=== PATIENT | male | born 1985 | race Caucasian/White ===

== ENCOUNTER 2017-02-09 19:49 | Inpatient (IN) | payer SELFPAY, OTHER ==
[~2017-02-09 19:49] MED LIST: ISOVUE-370 76%-LOCM 1 ML ONE
[2017-02-09 20:04] LABS: #Eosinphils 0.1 thou/uL (0.0-0.7); #Lymphocytes 1.3 thou/uL (1.20-3.40); #Monocytes 0.4 thou/uL (0.11-0.59); #Neutrophils 5.9 thou/uL (1.40-6.50); %Basophils 0.4 % (0.0-1.0); %Lymphocytes 17.2 % (21.0-51.0); %Monocytes 5.2 % (0.0-10.0); Hematocrit 41.8 % (42.0-52.0); Red Blood Cell (RBC) Count 4.74 mill/uL (4.70-6.10); White Blood Cell (WBC) Count 7.8 thou/uL (4.8-10.8)
[2017-02-09] MEDS ORDERED: Propofol 500 MG/50 ML VIAL ONE (20:05)
[2017-02-09 20:09] LABS: Prothrombin Time 13.8 SEC (12.0-14.7)
[2017-02-09 20:10] LABS: PTT 19.5 SEC (22.9-36.1)
[2017-02-09 20:11] LABS: Bilirubin Negative (Negative); Blood, Urine Negative (Negative); Glucose, Urine (Dipstick) Negative (Negative); Ketone, Urine Negative (Negative); Nitrite Negative (Negative); Protein, Urine (Dipstick) 30 mg/dL (Neg-Trace); Urobilinogen 0.2 mg/dL (0.2-1.0)
[2017-02-09 20:13] LABS: Bacteria/HPF None Seen HPF (None Seen); Hyaline Casts/LPF 0-3 HYALINE CAST LPF (0-3 Hyaline); RBC/HPF 0-3 HPF (0-3); Squamous Epithelial None Seen HPF (0-3); WBC/HPF 0-3 HPF (0-3)
[2017-02-09] MEDS ORDERED: Adacel (T-DAP) 0.5 ML VIAL ONE (20:13)
[2017-02-09 20:16] LABS: ALT (SGPT) 82 U/L (8-55); AST (SGOT) 67 U/L (5-34); Alkaline Phosphatase 87 U/L (40-150); Anion Gap 16 mmol/L (10-20); BUN (Urea Nitrogen) 9 mg/dL (8.9-20.6); Bilirubin, Total 0.4 mg/dL (0.2-1.2); Calc. Creatinine Clearance 0 mL/min (70-130); Calcium 8.9 mg/dL (7.8-10.44); Carbon Dioxide 22 mmol/L (22-29); Chloride 108 mmol/L (98-107); Estimated GFR-MDRD 80; Globulin 3.2 g/dL (2.4-3.5); Protein, Total 6.9 g/dL (6.0-8.3)
[2017-02-09 20:21] LABS: Amphetamine Not Detected (NotDetected); Methadone Not Detected (NotDetected); Methamphetamine Not Detected (NotDetected)
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
[2017-02-09] MEDS ORDERED: Dextrose 50% Abboject 50 ML SYRINGE SLOW IVP PRN (20:33)
[2017-02-09] MEDS ORDERED: HumaLOG 300 UNITS/3 ML VIAL SC PRN (20:33)
[2017-02-09] MEDS ORDERED: Dextrose 5% in Water 1,000 ML IV PRN (20:33)
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
[2017-02-09 20:46] LABS: Lactic Acid - Sepsis 2.5 mmol/L (0.5-2.2)
[2017-02-09] MEDS ORDERED: Sedation Protocol FS ONE (20:52)
[2017-02-09 20:55] LABS: Oxyhemoglobin 94.1 % (94.0-97.0); Sodium 142 mmol/L (135-148)
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
--- NOTE | 2017-02-09 21:08 | CT ---
CT CHEST WITH CONTRAST CT ABDOMEN AND PELVIS WITH CONTRAST CT THORACIC AND LUMBAR SPINE WITH CONTRAST: Clinical history: Post-traumatic pain. FINDINGS: Partially imaged endotracheal tube is present. There is also an enteric catheter present, traversing to the level of the stomach. There is bilateral parenchymal consolidation involving each lung, pred ominately posteriorly. This could be on the basis of aspiration given distribution. There is no pneu mothorax. No significant pleural effusion. No definite acute post-traumatic sequellae of the solid a bdominal viscera. Punctate hypoattenuation of the left kidney is too small to further characterize. There is nonobstructing right nephrolithiasis. Bowel is incompletely assessed without enteric contra st. There is no disseminated free air. There is mild nonspecific retroperitoneal fat stranding with mildly prominent lymph nodes. The thoracoabdominal aorta is of normal caliber. Indwelling Hester cath eter is present. Urinary bladder is decompressed. No evidence of compression deformity or traumatic subluxation within the thoracolumbar spine. There are multilevel chronic appearing mild endplate irregularities. 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 IMPRESSION: 1. Bilateral parenchymal areas of consolidation which may be on the basis of aspiration pneumonitis given distribution. Correlate clinically. 2. No definite acute post-traumatic sequellae otherwise identified. Telephone placed to Dr. Villanueva at 1485 hours on 02-09-17. Code CR POS: [facility]
[2017-02-09] MEDS ORDERED: DISCONTINUE PREVIOUS NARCOTIC PAIN MEDICATIONS AND BENZODIAZEPINES FS SCH (21:16)
[2017-02-09] MEDS ORDERED: Fentanyl 20 MCG/ML 250 ML IVPB SCH (21:16)
[2017-02-09] MEDS ORDERED: Propofol 1,000 MG/100 ML VIAL IV PRN (21:16)
[2017-02-09] MEDS ORDERED: Lorazepam 2 MG/ML VIAL SLOW IVP PRN (21:16)
[2017-02-09] MEDS ORDERED: Morphine Sulfate 2 MG/ML SYRINGE SLOW IVP PRN (21:16)
[2017-02-09 21:28] LABS: Mechanical Tidal Volume 500 ml; Mode SIMV; Modified Allen's Test POSITIVE; Pressure Support 10 cmH2O; Vent YES
[2017-02-09] MEDS: Sodium Chloride 0.9% 1,000 ML IV SCH (21:57)
[2017-02-09 22:26] VITALS: BMI 29.6
[2017-02-10 04:28] LABS: #Lymphocytes 0.9 thou/uL (1.20-3.40); #Monocytes 0.7 thou/uL (0.11-0.59); #Neutrophils 7.6 thou/uL (1.40-6.50); %Basophils 0.1 % (0.0-1.0); %Eosinophils 0.1 % (0.0-10.0); %Lymphocytes 9.3 % (21.0-51.0); %Monocytes 7.9 % (0.0-10.0); Hematocrit 43.5 % (42.0-52.0); Red Blood Cell (RBC) Count 4.97 mill/uL (4.70-6.10); White Blood Cell (WBC) Count 9.1 thou/uL (4.8-10.8)
[2017-02-10 04:50] LABS: Anion Gap 16 mmol/L (10-20); BUN (Urea Nitrogen) 10 mg/dL (8.9-20.6); Calc. Creatinine Clearance 125 mL/min (70-130); Calcium 9.3 mg/dL (7.8-10.44); Carbon Dioxide 24 mmol/L (22-29); Chloride 106 mmol/L (98-107); Estimated GFR-MDRD 76; Magnesium 1.8 mg/dL (1.6-2.6)
[2017-02-10] MEDS: Sodium Chloride 0.9% 1,000 ML IV SCH ×2 (05:39→19:42)
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
[2017-02-10 07:09] LABS: Mechanical Tidal Volume 500 ml; Mode SIMV; Oxyhemoglobin 94.5 % (94.0-97.0); Pressure Support 10 cmH2O; Vent YES
[2017-02-10] MEDS ORDERED: Magnesium Sulfate 4 GM in Sodium Chloride 0.9% 250 ML 250 ML IVPB SCH (07:45)
--- NOTE | 2017-02-10 08:41 | CT ---
PRELIMINARY REPORT/[facility]/EMERGENCY AFTER HOURS PROCEDURE: Addendum created by Ramez Browne MD on 02/10/2017 4:29 AM Central Time ([place] \T\ [place]) THIS REPORT CONTAINS FINDINGS THAT MAY BE CRITICAL TO PATIENT CARE. The findings were verbally commu nicated via telephone conference with Jim BRYANT at 4:28 AM CDT on 02/10/2017. The findings were acknowl edged and understood. Initial Report created on 02/10/2017 4:02 AM Central Time ([place] \T\ [place]) EXAM: CT Head Without Intravenous Contrast CLINICAL HISTORY: 31 years old, male; Condition or disease; Other: F/u sdh TECHNIQUE: Axial computed tomography images of the head/brain without intravenous contrast. COMPARISON: No relevant prior studies available. FINDINGS: Brain: Faint right tentorial subdural hemorrhage suspected. Faint right-sided subarachnoid hemorrhag e noted in the right frontotemporoparietal regions. No significant white matter disease. No edema. Ventricles: Unremarkable. No ventriculomegaly. Bones/joints: Unremarkable. No acute fracture. Soft tissues: Left occipital scalp swelling Sinuses: Air fluid levels in the sphenoid and right maxillary sinuses. Mastoid air cells: Unremarkable as visualized. No mastoid effusion. IMPRESSION: Faint right subdural and subarachnoid hemorrhages as described. Comparison with prior studies would be helpful Thank you for allowing us to participate in the care of your patient. Dictated and Authenticated by: Ramez Browne MD 02/10/2017 4:02 AM Central Time ([place] \T\ [place]) FINAL REPORT EMERGENT AFTER HOURS CT HEAD WITHOUT IV CONTRAST: DATE: 02/10/17. HISTORY: Subdural hemorrhage and subarachnoid hemorrhage. Followup evaluation. COMPARISON: 02/09/17. IMPRESSION: 1. Small amount of subarachnoid hemorrhage is again seen in the right anterior frontal lobe as well as stable small amount of hemorrhage along the right tentorium. 2. Biparietal scalp hematoma also present on the prior study but mildly increased. No underlying c alvarial fracture is seen. 3. Mucosal thickening bilateral ethmoidal air cells with minimal air fluid levels in each sphenoid sinus. 4. Endotracheal tube and nasogastric tubes are partially imaged. 5. Findings are in agreement with the preliminary report by [facility]. POS: [facility]
[2017-02-10] MEDS ORDERED: FLU VACC QS2017-18 36 mo. & older 0.5 ML SYRINGE IM ONE (09:00)
[2017-02-10] MEDS ORDERED: Famotidine/PF 20 mg/2ml Vial SLOW IVP SCH (09:00)
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
[2017-02-10] MEDS: traMADol HCl 50 MG TAB PO SCH ×2 (17:51→23:37)
[2017-02-10] MEDS: Acetaminophen 500 MG TAB PO SCH ×2 (19:33→23:38)
[2017-02-10] MEDS ORDERED: diphenhydrAMINE HCl 50 MG/ML 1 ML VIAL IVP SCH (21:15)
[2017-02-11] MEDS: traMADol HCl 50 MG TAB PO SCH ×4 (05:14→23:13)
[2017-02-11] MEDS: Acetaminophen 500 MG TAB PO SCH ×4 (05:14→23:11)
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
--- NOTE | 2017-02-11 12:48 | RAD ---
RIGHT SHOULDER THREE VIEWS: HISTORY: Right shoulder pain. FINDINGS: Acromioclavicular and glenohumeral alignment are maintained. No acute fracture or dislocation is ev ident. Patchy air space opacity within the right lung is partially visualized. IMPRESSION: No acute osseous abnormalities are demonstrated. POS: [facility]
[2017-02-11] MEDS: HYDROcodone/Acetaminophen 5/325 mg Tablet PO PRN ×2 (13:39→20:19)
[2017-02-12] MEDS: HYDROcodone/Acetaminophen 5/325 mg Tablet PO PRN ×4 (04:20→21:10)
[2017-02-12] MEDS: Acetaminophen 500 MG TAB PO SCH (04:29)
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
[2017-02-12] MEDS: traMADol HCl 50 MG TAB PO SCH ×3 (06:19→17:56)
[2017-02-12] MEDS: Senokot 8.6 MG TAB PO SCH (09:31)
[2017-02-12] MEDS: Docusate 100 MG CAP PO SCH (09:31)
[2017-02-12] MEDS: Acetaminophen 325 MG TAB PO SCH ×2 (11:41→17:55)
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
[2017-02-12] MEDS ORDERED: ALPRAZolam 0.5 MG TAB PO SCH ×2 (15:45→21:00)
[2017-02-12] MEDS: Nicotine 21 MG PATCH TD SCH (16:58)
[2017-02-13] MEDS: traMADol HCl 50 MG TAB PO SCH ×4 (00:34→16:35)
[2017-02-13] MEDS: Acetaminophen 325 MG TAB PO SCH ×4 (00:34→17:34)
[2017-02-13] MEDS: Senokot 8.6 MG TAB PO SCH (08:06)
[2017-02-13] MEDS: Docusate 100 MG CAP PO SCH (08:07)
[2017-02-13] MEDS: PARoxetine 20 MG TAB PO SCH (08:07)
[2017-02-13] MEDS: HYDROcodone/Acetaminophen 5/325 mg Tablet PO PRN ×2 (08:07→21:21)
[2017-02-13] MEDS ORDERED: CeleCOXIB 100 MG CAP PO SCH (09:00)
[2017-02-13] MEDS ORDERED: ALPRAZolam 0.5 MG TAB PO SCH (12:15)
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
[2017-02-13] MEDS: Nicotine 21 MG PATCH TD SCH ×2 (16:32→16:49)
[2017-02-13] MEDS: Ondansetron ODT 4 MG TAB PO PRN (20:16)
[2017-02-13] MEDS: ALPRAZolam 0.5 MG TAB PO SCH (21:21)
[2017-02-14] MEDS: Acetaminophen 325 MG TAB PO SCH ×4 (00:14→17:14)
[2017-02-14] MEDS: traMADol HCl 50 MG TAB PO SCH ×4 (00:14→17:13)
[2017-02-14] MEDS: HYDROcodone/Acetaminophen 5/325 mg Tablet PO PRN ×3 (06:54→14:13)
[2017-02-14 08:57] LABS: Anion Gap 14 mmol/L (10-20); BUN (Urea Nitrogen) 4 mg/dL (8.9-20.6); Calc. Creatinine Clearance 172 mL/min (70-130); Calcium 9.6 mg/dL (7.8-10.44); Carbon Dioxide 23 mmol/L (22-29); Chloride 104 mmol/L (98-107); Estimated GFR-MDRD Greater than 90; Magnesium 2.3 mg/dL (1.6-2.6); Phosphorus 2.4 mg/dL (2.3-4.7)
[2017-02-14] MEDS: Docusate 100 MG CAP PO SCH (09:11)
[2017-02-14] MEDS: PARoxetine 20 MG TAB PO SCH (09:11)
[2017-02-14] MEDS: ALPRAZolam 0.5 MG TAB PO SCH ×2 (09:12→20:55)
[2017-02-14] MEDS: Senokot 8.6 MG TAB PO SCH (09:14)
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
[2017-02-14] MEDS: Nicotine 21 MG PATCH TD SCH (17:14)
[2017-02-14] MEDS: Ondansetron ODT 4 MG TAB PO PRN (18:09)
--- NOTE | 2017-02-14 21:33 | CT ---
CT BRAIN WITHOUT CONTRAST: 02/14/17 HISTORY: Status post fall. FINDINGS: Comparison is made with the exam of 02/11/17. The focal low density in the white matter of the right posterior temporal and occipital lobe is stab le. The small amount of subdural hemorrhage demonstrates interval improvement. No new areas of hemor rhage, infarction, midline shift or other abnormal extra-axial fluid collections are seen. The bony calvarium is intact. IMPRESSION: Interval improvement since 02/11/17. POS: [facility]
[2017-02-15] MEDS: Acetaminophen 325 MG TAB PO SCH ×5 (00:15→23:32)
[2017-02-15] MEDS: traMADol HCl 50 MG TAB PO SCH ×5 (00:15→23:31)
[2017-02-15] MEDS: HYDROcodone/Acetaminophen 5/325 mg Tablet PO PRN ×3 (01:42→13:27)
[2017-02-15] MEDS: ALPRAZolam 0.5 MG TAB PO SCH ×2 (08:40→20:36)
[2017-02-15] MEDS: PARoxetine 20 MG TAB PO SCH (08:40)
[2017-02-15] MEDS: Senokot 8.6 MG TAB PO SCH (08:40)
[2017-02-15] MEDS: Docusate 100 MG CAP PO SCH (08:41)
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
[2017-02-15] MEDS ORDERED: SODIUM CHLORIDE 0.9% IVPB SCH (14:30)
[2017-02-15] MEDS ORDERED: FOSPHENYTOIN SODIUM IVPB SCH (14:30)
--- NOTE | 2017-02-15 14:56 | CT ---
CT HEAD NONCONTRAST: History: Seizure. Headache. Comparison: 02-14-17 FINDINGS: No acute intracranial hemorrhage or infarct are apparent. Mild diffuse cerebral edema is stable. The re is no mass effect of shift of midline structures. Visualized paranasal sinuses remain well aerate d. IMPRESSION: Stable post-traumatic CT appearance of the head. No new abnormalities are demonstrated. POS: [facility]
[2017-02-15] MEDS: Ondansetron HCl/PF 4 MG/2 ML Vial IVP PRN (15:19)
[2017-02-15] MEDS: Nicotine 21 MG PATCH TD SCH (17:33)
[2017-02-16] MEDS: HYDROcodone/Acetaminophen 5/325 mg Tablet PO PRN ×3 (04:18→13:33)
[2017-02-16] MEDS: traMADol HCl 50 MG TAB PO SCH ×3 (05:25→18:19)
[2017-02-16] MEDS: Acetaminophen 325 MG TAB PO SCH ×3 (05:25→18:19)
[2017-02-16] MEDS: Ondansetron HCl/PF 4 MG/2 ML Vial IVP PRN (07:32)
[2017-02-16] MEDS: PARoxetine 20 MG TAB PO SCH (08:58)
[2017-02-16] MEDS: Senokot 8.6 MG TAB PO SCH (08:58)
[2017-02-16] MEDS: Docusate 100 MG CAP PO SCH (08:58)
[2017-02-16] MEDS: ALPRAZolam 0.5 MG TAB PO SCH ×2 (08:58→20:21)
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
[2017-02-16] MEDS ORDERED: Lorazepam 2 MG/ML VIAL SLOW IVP SCH (15:15)
[2017-02-16] MEDS: Nicotine 21 MG PATCH TD SCH (18:20)
[2017-02-16] MEDS: levETIRAcetam 500 MG TAB PO SCH (20:22)
[2017-02-17] MEDS: Acetaminophen 325 MG TAB PO SCH ×4 (00:21→18:13)
[2017-02-17] MEDS: traMADol HCl 50 MG TAB PO SCH ×4 (00:21→18:13)
[2017-02-17] MEDS: HYDROcodone/Acetaminophen 5/325 mg Tablet PO PRN (07:07)
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
[2017-02-17] MEDS: PARoxetine 20 MG TAB PO SCH (10:29)
[2017-02-17] MEDS: ALPRAZolam 0.5 MG TAB PO SCH ×2 (10:29→19:59)
[2017-02-17] MEDS: levETIRAcetam 500 MG TAB PO SCH ×2 (10:29→19:58)
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
[2017-02-17] MEDS: Docusate 100 MG CAP PO SCH (12:23)
[2017-02-17] MEDS: Senokot 8.6 MG TAB PO SCH (12:24)
[2017-02-17] MEDS ORDERED: Midazolam HCl 2 mg/2 ml Vial ONE (13:59)
[2017-02-17] MEDS ORDERED: Fentanyl 100 MCG/2 ML VIAL ONE (13:59)
[2017-02-17] MEDS ORDERED: Propofol 500 MG/50 ML VIAL ONE (14:06)
[2017-02-17] MEDS ORDERED: Ondansetron HCl/PF 4 MG/2 ML Vial IVP PRN (15:12)
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
[2017-02-17] MEDS: Nicotine 21 MG PATCH TD SCH (18:15)
[2017-02-17] MEDS ORDERED: Ziprasidone 20 MG VIAL IM SCH (18:45)
[2017-02-18] MEDS: traMADol HCl 50 MG TAB PO SCH ×4 (00:24→13:21)
[2017-02-18] MEDS: Acetaminophen 325 MG TAB PO SCH ×4 (00:25→16:39)
[2017-02-18] MEDS: HYDROcodone/Acetaminophen 5/325 mg Tablet PO PRN ×3 (03:04→19:23)
[2017-02-18] MEDS: levETIRAcetam 500 MG TAB PO SCH ×2 (08:40→20:12)
[2017-02-18] MEDS: PARoxetine 20 MG TAB PO SCH (08:40)
[2017-02-18] MEDS: ALPRAZolam 0.5 MG TAB PO SCH ×2 (08:40→20:12)
[2017-02-18] MEDS: Docusate 100 MG CAP PO SCH (08:42)
[2017-02-18] MEDS: Senokot 8.6 MG TAB PO SCH (08:42)
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
[2017-02-18] MEDS: Nicotine 21 MG PATCH TD SCH (17:36)
[2017-02-18] MEDS: traMADol HCl 50 MG TAB PO PRN (20:12)
[2017-02-19] MEDS: Acetaminophen 325 MG TAB PO SCH ×6 (01:29→16:44)
[2017-02-19] MEDS: traMADol HCl 50 MG TAB PO PRN ×2 (02:27→20:20)
[2017-02-19] MEDS: levETIRAcetam 500 MG TAB PO SCH ×2 (09:34→21:05)
[2017-02-19] MEDS: ALPRAZolam 0.5 MG TAB PO SCH ×2 (09:34→21:05)
[2017-02-19] MEDS: PARoxetine 20 MG TAB PO SCH (09:35)
[2017-02-19] MEDS: Docusate 100 MG CAP PO SCH (09:35)
[2017-02-19] MEDS: Senokot 8.6 MG TAB PO SCH (09:35)
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
[2017-02-19] MEDS: HYDROcodone/Acetaminophen 5/325 mg Tablet PO PRN ×2 (16:40→22:41)
[2017-02-19] MEDS: Nicotine 21 MG PATCH TD SCH (16:44)
[2017-02-20] MEDS: Acetaminophen 325 MG TAB PO SCH ×4 (00:32→18:56)
[2017-02-20] MEDS: Senokot 8.6 MG TAB PO SCH (11:37)
[2017-02-20] MEDS: Docusate 100 MG CAP PO SCH (11:37)
[2017-02-20] MEDS: ALPRAZolam 0.5 MG TAB PO SCH ×2 (11:38→21:02)
[2017-02-20] MEDS: PARoxetine 20 MG TAB PO SCH (11:38)
[2017-02-20] MEDS: levETIRAcetam 500 MG TAB PO SCH ×2 (11:38→21:02)
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
[2017-02-20] MEDS: traMADol HCl 50 MG TAB PO PRN ×2 (12:29→21:02)
[2017-02-20] MEDS: Nicotine 21 MG PATCH TD SCH ×2 (16:27→21:32)
[2017-02-21] MEDS ORDERED: Cepastat Lozenges 1 LOZ PO PRN (03:49)
[2017-02-21] MEDS: Acetaminophen 325 MG TAB PO SCH ×3 (06:32→18:32)
--- NOTE | 2017-02-21 08:13 | RAD ---
SINGLE VIEW OF CHEST: Date: 02/21/17 COMPARISON: None. HISTORY: Cough. FINDINGS: Single view of the chest shows a normal sized cardiomediastinal silhouette. There is no evidence of consolidation, mass, or pleural effusion. The bones are unremarkable. IMPRESSION: No evidence of acute cardiopulmonary disease. POS: [facility]
[2017-02-21] MEDS: ALPRAZolam 0.5 MG TAB PO SCH ×2 (08:59→21:09)
[2017-02-21] MEDS: levETIRAcetam 500 MG TAB PO SCH ×2 (08:59→21:09)
[2017-02-21] MEDS: PARoxetine 20 MG TAB PO SCH (08:59)
[2017-02-21] MEDS: Docusate 100 MG CAP PO SCH (09:01)
[2017-02-21] MEDS: Senokot 8.6 MG TAB PO SCH (09:01)
[2017-02-21] MEDS: traMADol HCl 50 MG TAB PO PRN ×2 (09:04→21:28)
--- NOTE | 2017-02-21 15:01 | EKG ---
Test Reason : Blood Pressure : / mmHG Vent. Rate : 090 BPM Atrial Rate : 090 BPM P-R Int : 164 ms QRS Dur : 090 ms QT Int : 344 ms P-R-T Axes : 039 013 047 degrees QTc Int : 420 ms Normal sinus rhythm Normal ECG Confirmed by SHAY CASTRO D.O. ([id number]), legal editor CALVIN BANERJEE ([id number] on 02/21/2017 3:01:51 PM Referred By: Confirmed By:SHAY CASTRO D.O.
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
[2017-02-21] MEDS: Nicotine 21 MG PATCH TD SCH (21:09)
[2017-02-22] MEDS: Acetaminophen 325 MG TAB PO SCH ×5 (00:16→23:06)
[2017-02-22] MEDS: PARoxetine 20 MG TAB PO SCH (09:43)
[2017-02-22] MEDS: levETIRAcetam 500 MG TAB PO SCH ×2 (09:44→20:37)
[2017-02-22] MEDS: ALPRAZolam 0.5 MG TAB PO SCH ×2 (09:44→20:37)
[2017-02-22] MEDS: Senokot 8.6 MG TAB PO SCH (09:47)
[2017-02-22] MEDS: Docusate 100 MG CAP PO SCH (09:47)
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
[2017-02-22] MEDS: Nicotine 21 MG PATCH TD SCH (21:41)
[2017-02-23] MEDS: Acetaminophen 325 MG TAB PO SCH ×2 (05:45→14:46)
[2017-02-23] MEDS: PARoxetine 20 MG TAB PO SCH (08:53)
[2017-02-23] MEDS: levETIRAcetam 500 MG TAB PO SCH (08:53)
[2017-02-23] MEDS: ALPRAZolam 0.5 MG TAB PO SCH (08:53)
[2017-02-23] MEDS: Senokot 8.6 MG TAB PO SCH (08:58)
[2017-02-23] MEDS: Docusate 100 MG CAP PO SCH (08:58)
[2017-02-23 12:05] VITALS: BP 129/72; TEMP 97.5
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
== END 2017-02-23 15:20 | disposition home or self-care (01) | DRG 82 ==
LOC: EDBD 19:49 → ERS 19:49 → CCU 21:01 → MERGE 21:01 → SURG A 02-10 18:57
PROVIDERS: ADMIT Surgery; ATTEND Surgery
PROC: 5A1935Z Respiratory Ventilation, Less than 24 Consecutive Hours (ICD-10-PCS; principal; 2017-02-10)
PROC: 0BH17EZ Insertion of Endotracheal Airway into Trachea, Via Natural or Artificial Opening (ICD-10-PCS; 2017-02-10)
PROC: 0BP1XDZ Removal of Intraluminal Device from Trachea, External Approach (ICD-10-PCS; 2017-02-11)
PROC: B030ZZZ Magnetic Resonance Imaging (MRI) of Brain (ICD-10-PCS; 2017-02-17)
DX: S06.6X9A Traumatic subarachnoid hemorrhage with loss of consciousness of unspecified duration, initial encounter (principal); G93.41 Metabolic encephalopathy; R56.9 Unspecified convulsions; E83.42 Hypomagnesemia; S06.5X9A Traumatic subdural hemorrhage with loss of consciousness of unspecified duration, initial encounter; S06.2X9A Diffuse traumatic brain injury with loss of consciousness of unspecified duration, initial encounter; F10.120 Alcohol abuse with intoxication, uncomplicated; F12.90 Cannabis use, unspecified, uncomplicated; F14.90 Cocaine use, unspecified, uncomplicated; R40.2410 Glasgow coma scale score 13-15, unspecified time; T14.8XXA Other injury of unspecified body region, initial encounter; V29.40XA Motorcycle driver injured in collision with unspecified motor vehicles in traffic accident, initial encounter; Y92.410 Unspecified street and highway as the place of occurrence of the external cause
CPT/HCPCS: 36415; 36416; 51702; 70450; 70551; 71010; 71260; 72125; 72170; 74177; 80048; 80053; 80306; 80307; 81003; 81015; 82150; 82805; 83605; 83735; 84100; 85025; 85610; 85730; 86850; 86900; 86901; 90471; 90715; 93005; 94002; 94003; 95816; 95819; 96374; 96375; G0390; G8978-GP-CJ; G8978-GP-CM; G8979-GP-CI; G8979-GP-CJ; G8987-GO-CL; G8988-GO-CJ; G9165-GN-CK; G9165-GN-CL; G9166-GN-CI; G9166-GN-CJ; J1200; J2060; J2250; J2270; J2405; J2704; J3010; J3475; J3486; J7050; Q0162; Q2009; S0028